=== PATIENT | female | born 1975 | race Caucasian/White ===

== ENCOUNTER → 2016-05-29 | Outpatient (CLI) | payer BC ==
--- NOTE | 2016-05-30 09:01 | MM ---
Reason for exam: screening (asymptomatic). Last mammogram was performed 5 years and 4 months ago. History: Breast lifts of both breasts, January 2011. Took hormonal contraceptives for 3 years. Took progesterone for 6 months. Physical Findings: A clinical breast exam by your physician is recommended on an annual basis and results should be correlated with mammographic findings. MG Screening Mammo w CAD Bilateral CC and MLO view(s) were taken. Prior study comparison: January 15, 2011, bilateral digital screening mammo w/CAD. The breast tissue is extremely dense which could obscure a lesion on mammography. Finding: There are typically benign round, regional calcifications in the anterior position of both breasts. Focal asymmetry in the right posterior outer aspect. New finding since January 15, 2011. ASSESSMENT: Incomplete: need additional imaging evaluation, BI-RAD 0 RECOMMENDATION: Special view mammogram and ultrasound of the right breast. [facility] will attempt to contact patient to return for supplemental views and ultrasound.
== END | disposition home or self-care (01) ==
LOC: RADMAMWWP 08:12
PROVIDERS: ATTEND Family Medicine
DX: Z12.31 Encounter for screening mammogram for malignant neoplasm of breast (principal)

== ENCOUNTER → 2016-06-04 | Outpatient (CLI) | payer BC ==
--- NOTE | 2016-06-04 09:17 | MM ---
Reason for exam: additional evaluation requested from abnormal screening. Last mammogram was performed less than 1 month ago. History: Breast lifts of both breasts, January 2011. Took hormonal contraceptives for 3 years. Took progesterone for 6 months. Physical Findings: Nurse did not find any significant physical abnormalities on exam. MG 3D Work Up W/Cad RT LM and spot compression CC view(s) were taken of the right breast. Prior study comparison: May 29, 2016, bilateral MG screening mammo w CAD. January 15, 2011, bilateral digital screening mammo w/CAD. The breast tissue is heterogeneously dense. This may lower the sensitivity of mammography. A 7mm area of nodular asymmetry is seen superiorly on the lateral view but becomes less defined on the CC view and may have been displaced laterally. These results were verbally communicated with the patient and result sheet given to the patient on 06/04/16. ASSESSMENT: Incomplete: need additional imaging evaluation, BI-RAD 0 RECOMMENDATION: Ultrasound of the right breast. (upper outer quadrant)
--- NOTE | 2016-06-04 09:22 | USB ---
Reason for exam: additional evaluation requested from abnormal screening. History: Breast lifts of both breasts, January 2011. Took hormonal contraceptives for 3 years. Took progesterone for 6 months. US Breast Workup Limited RT Right breast ultrasound demonstrates a 1.0 x 0.5 x 0.8cm oval, cystic cluster at 10 o'clock. This probably corresponds to the mammographic finding. A 6 month follow up is recommended. These results were verbally communicated with the patient and result sheet given to the patient on 06/04/16. ASSESSMENT: Probably benign, BI-RAD 3 RECOMMENDATION: Follow-up diagnostic mammogram and ultrasound of the right breast in 6 months. (targeted upper outer quadrant)
== END | disposition home or self-care (01) ==
LOC: RADMAMWWP 08:05
PROVIDERS: ATTEND Family Medicine
DX: R92.8 Other abnormal and inconclusive findings on diagnostic imaging of breast (principal)
CPT/HCPCS: 76642; G0206; G0279

== ENCOUNTER → 2016-09-24 | Outpatient (CLI) | payer BC ==
[2016-09-24 07:52] LABS: Basophils % (A) 1 %; CH 31.2; CHCM 33.3; Eosinophils # (A) 0.1 k/uL (0-0.7); Eosinophils % (A) 1 %; HCT 34.8 % (34.0-46.0); HDW 2.18; HGB 11.9 gm/dL (11.4-16.0); Luc % (Auto) 2; Lymphocytes # (A) 1.6 k/uL (1.0-4.8); Lymphocytes % (A) 25 %; MCH 32.2 pg (25.0-35.0); MCHC 34.3 g/dL (31.0-37.0); MCV 93.9 fL (80.0-100.0); Mean Platelet Volume 7.3; Monocytes # (A) 0.5 k/uL (0-1.0); Monocytes % (A) 7 %; Neutrophils # (A) 4.2 k/uL (1.3-7.7); Neutrophils % (A) 65 %; RBC 3.71 m/uL (3.80-5.40); RDW 12.4 % (11.5-15.5); WBC 6.5 k/uL (3.8-10.6); WBC (Perox) 6.69
[2016-09-24 08:13] LABS: ALT 33 U/L (9-52); AST 23 U/L (14-36); Alkaline Phosphatase 49 U/L (38-126); Anion Gap 6 mmol/L; Blood Urea Nitrogen 15 mg/dL (7-17); Calcium 9.2 mg/dL (8.4-10.2); Carbon Dioxide 28 mmol/L (22-30); Chloride 106 mmol/L (98-107); Cholesterol 163 mg/dL (<200); Glucose 83 mg/dL (74-99); HDL Cholesterol 73 mg/dL (40-60); Non-African American GFR(MDRD) >60 (>60 ml/min/1.73 sqM); Potassium 4.3 mmol/L (3.5-5.1); Sodium 140 mmol/L (137-145); Total Bilirubin 0.8 mg/dL (0.2-1.3); Total Protein 6.5 g/dL (6.3-8.2); Triglycerides 63 mg/dL (<150)
== END | disposition home or self-care (01) ==
LOC: LABWHC1 07:11
PROVIDERS: ATTEND Family Medicine
DX: Z00.00 Encounter for general adult medical examination without abnormal findings (principal)
CPT/HCPCS: 36415; 80053; 80061; 84439; 84443; 85025

== ENCOUNTER → 2016-12-06 | Outpatient (CLI) | payer BC ==
--- NOTE | 2016-12-06 09:35 | MM ---
Reason for exam: follow-up at short interval from prior study. Last mammogram was performed 6 months ago. History: Breast lifts of both breasts, January 2011. Took hormonal contraceptives for 3 years. Took progesterone for 6 months. Physical Findings: Nurse Summary: cluster in the right breast at 10 o'clock (nurse ts). MG 3D Diag Mammo W/Cad RT CC and MLO view(s) were taken of the right breast. Prior study comparison: June 04, 2016, right breast MG 3d work up w/cad RT. May 29, 2016, bilateral MG screening mammo w CAD. The breast tissue is extremely dense which could obscure a lesion on mammography. There is no discrete abnormality. Previoius nodule not as evident. No significant new findings when compared with previous films. These results were verbally communicated with the patient and result sheet given to the patient on 12/06/16. ASSESSMENT: Probably benign, BI-RAD 3 RECOMMENDATION: Follow-up diagnostic mammogram of both breasts in 6 months.
--- NOTE | 2016-12-06 09:52 | USB ---
Reason for exam: follow-up at short interval from prior study. History: Breast lifts of both breasts, January 2011. Took hormonal contraceptives for 3 years. Took progesterone for 6 months. US Breast RT Right breast ultrasound includes all four quadrants, the retroareolar region and axilla. Finding demonstrates a 3 x 3 x 4mm oval, cystic lesion at 3 o'clock, a 6 x 4 x 8mm oval, mixed lesion at 7 o'clock and a 8 x 3 x 7mm oval, mixed lesion at 10 o'clock, smaller in size since previous. These results were verbally communicated with the patient and result sheet given to the patient on 12/06/16. ASSESSMENT: Probably benign, BI-RAD 3 RECOMMENDATION: Ultrasound of the right breast in 6 months.
== END | disposition home or self-care (01) ==
LOC: RADMAMWWP 07:34
PROVIDERS: ATTEND Obstetrics & Gynecology
DX: R92.8 Other abnormal and inconclusive findings on diagnostic imaging of breast (principal)
CPT/HCPCS: 76641; G0206; G0279

== ENCOUNTER → 2017-07-02 | Outpatient (CLI) | payer BC ==
--- NOTE | 2017-07-02 08:52 | MM ---
Reason for exam: follow-up at short interval from prior study. Last mammogram was performed 7 months ago. History: Breast lifts of both breasts, January 2011. Took hormonal contraceptives for 3 years. Took progesterone for 6 months. Physical Findings: Nurse Summary: 2.5cm nodule in the right breast at 10-11 o'clock and a 2.5cm nodule in the left breast at 10-11 o'clock (nurse dw). MG 3D Diag Mammo W/Cad YOLI Bilateral CC and MLO view(s) were taken. Prior study comparison: December 06, 2016, right breast MG 3d diag mammo w/cad RT. June 04, 2016, right breast MG 3d work up w/cad RT. The breast tissue is extremely dense which could obscure a lesion on mammography. Finding: There are typically benign punctate, diffuse/scattered calcifications in both breasts. These results were verbally communicated with the patient and result sheet given to the patient on 07/02/17. ASSESSMENT: Benign, BI-RAD 2 RECOMMENDATION: Routine screening mammogram of both breasts in 1 year. Manage patient on a clinical basis.
== END | disposition home or self-care (01) ==
LOC: RADMAMWWP 07:57
PROVIDERS: ATTEND Obstetrics & Gynecology
DX: N60.19 Diffuse cystic mastopathy of unspecified breast (principal)
CPT/HCPCS: 77066; G0279

== ENCOUNTER → 2017-09-18 | Outpatient (CLI) | payer BC ==
--- NOTE | 2017-09-22 08:14 | USB ---
Reason for exam: clinical finding. History: Breast lifts of both breasts, January 2011. Took hormonal contraceptives for 3 years. Took progesterone for 6 months. Physical Findings: Nurse Summary: 10 o'clock 2.5cm palpable per Dr. Alexander (nurse ts). US Breast RT Right complete breast ultrasound includes all four quadrants, the retroareolar region and axilla. Finding demonstrates a 0.4 x 0.5 x 0.3cm mixed lesion at 3 o'clock versus 3 x 4 x 3mm, previously, not significantly changed and benign, a 0.4 x 0.3 x 0.4cm cystic, benign lesion at 5 o'clock, a 0.5 x 0.5 x 0.4cm cystic, benign lesion at 7 o'clock, a 0.6 x 0.7 x 0.2cm cystic, benign lesion at 10 o'clock and a 0.3 x 0.4 x 0.2cm cystic, benign lesion at 10 o'clock. No suspicious lesion at the 10 o'clock palpable. Dense tissue noted here. These results were verbally communicated with the patient and result sheet given to the patient on 09/18/17. ASSESSMENT: Benign, BI-RAD 2 RECOMMENDATION: Routine screening mammogram of both breasts in 9 months. Back on schedule.
== END | disposition home or self-care (01) ==
LOC: RADUSWWP 12:54
PROVIDERS: ATTEND Surgery
DX: N63.10 Unspecified lump in the right breast, unspecified quadrant (principal)

== ENCOUNTER → 2017-09-18 | Outpatient (CLI) | payer BC ==
[2017-09-18 11:54] VITALS: BP 122/73; PULSE 69; BMI 21.9
--- NOTE | 2017-09-18 12:48 | P.GSHP ---
History of Present Illness H&P Date: 09/18/17 Patient is a 41 year old white female seen in May for a breast exam after which a FNA was preformed. This was benign. She notes cyclic changes in her breast morton and nodular about once a month. She had uterine ablation and does not have periods. Last mammogram was done on 07/02/2017. This was felt to show extremely dense breast tissue with a typically benign punctate diffuse scattered calcifications bilaterally. There were no masses of concern which would warrant biopsy. This was felt to be a benign BIRADS 2 with routine screening mammogram of both breasts in 1 year. The patient does not feel anything of concern in her breast at this time. No nipple discharge or skin changes of concern. The patient does not note anything of concern in either breast at this time. No discrete masses or nodules of concern. No nipple discharge or changes of concern. Past surgical history: 1. Breast reconstruction after delivering her 2 children 2. Past medical history: Negative Family History: no cancer menarche: 12 : 2, first at 17, breast fed both uterine ablation: 30, no periods since than BCP: 15 years hormones: progesterone for about 2 months social history: smoke: stopped 15 years ago smoked for 10 years alcohol: none drugs: none - Constitutional Constitutional: Denies chills, Denies fever - EENT Eyes: denies blurred vision, denies decreased vision Ears: deny: decreased hearing, tinnitus Ears, nose, mouth and throat: Denies headache, Denies sore throat - Breasts Breasts: bilateral: as per HPI - Cardiovascular Cardiovascular: Denies chest pain, Denies shortness of breath - Respiratory Respiratory: Denies cough, Denies 7 - Gastrointestinal Gastrointestinal: Denies abdominal pain, Denies diarrhea, Denies nausea, Denies vomiting - Genitourinary (Female) Genitourinary: Denies dysuria, Denies hematuria - Musculoskeletal Musculoskeletal: Denies myalgias - Integumentary Integumentary: Denies pruritus, Denies rash - Neurological Neurological: Denies numbness, Denies weakness - Psychiatric Psychiatric: Denies anxiety, Denies depression - Endocrine Endocrine: Denies fatigue, Denies weight change - Hematologic/Lymphatic Comment: none - Allergic/Immunologic Comment: none Past Medical History History of Any Multi-Drug Resistant Organisms: None Reported Past Surgical History: Breast Surgery, Section Additional Past Surgical History / Comment(s): breast reconstruction 2010, c/s 1997 Smoking Status: Never smoker Medications and Allergies Home Medications Medication Instructions Recorded Confirmed Type ISOtretinoin [Amnesteem] 20 caplet PO DAILY 09/18/17 09/18/17 History Surgical - Exam Vital Signs Pulse BP Pulse Ox 69 122/73 98 09/18/17 11:48 09/18/17 11:48 09/18/17 11:48 - General well developed, well nourished, no distress - Eyes normal ocular movement, no icteric - ENT no hearing loss, no congestion - Neck no masses, trachea midline - Respiratory normal respiratory effort, clear to auscultation - Cardiovascular Rhythm: regular Heart Sounds: normal: S1, S2 - Abdomen Abdomen: soft, non tender, no guarding, no rigid, no rebound - Integumentary no rash, no abnormal pigmentation - Neurologic no disoriented, no combative - Musculoskeletal normal gait - Psychiatric oriented to time, oriented to person, oriented to place, speech is normal, memory intact Breast Exam: right breast: Multiple positional exam reveals well-healed scars from prior reduction mammoplasty increased nodularity in the upper outer quadrant region from which FNA has already been performed and been benign May 2017 Right axilla: No adenopathy of concern Left breast: skin changes related to prior reduction mammoplasty, increased nodularity upper outer quadrant slightly less than on the right side felt to be fibrocystic changes Left axilla: No adenopathy of concern Assessment and Plan Assessment: Impression/plan: 1. Bilateral fibrocystic breast changes 2. Bilateral reduction mammoplasty, with post op changes 3. Bilateral mammogram performed June 2017 felt to be benign 4. Patient recommended in November to undergo a right breast ultrasound which will be ordered at this time Plan: 1. Right breast ultrasound 2. Close surveillance of breast nodularity 3. Repeat physician exam in 6 months with repeat bilateral mammogram in 1 year Cc: Dr. Saravia
== END ==
LOC: WWCWWP 11:39
PROVIDERS: ATTEND Surgery
DX: N60.19 Diffuse cystic mastopathy of unspecified breast (principal); Z53.9 Procedure and treatment not carried out, unspecified reason

== ENCOUNTER 2019-07-07 07:41 | Emergency (ER) | payer BC ==
[2019-07-07 07:50] VITALS: BP 123/85; PULSE 75; RESP 18; TEMP 98.2
--- NOTE | 2019-07-07 07:58 | ED ---
Lower Extremity Injury HPI - General Chief Complaint: Extremity Injury, Lower Stated Complaint: RT foot injury Time Seen by Provider: 07/07/19 07:48 Source: patient, RN notes reviewed Mode of arrival: ambulatory Limitations: no limitations - History of Present Illness Initial Comments: 43-year-old female presents emergency Department with chief complaint of right foot injury. Patient states that she was moving a piece of heavy furniture on Friday states that she did not move her foot on the way in time states that it crushed her right foot. Patient states that it is swollen, bruised and she states the pain is not improving. She has had a prior right foot fracture. Denies any paresthesias. Denies any other areas of injury or any other areas of pain. - Related Data Home Medications Medication Instructions Recorded Confirmed ISOtretinoin [Amnesteem] 20 caplet PO DAILY 09/18/17 09/18/17 Allergies Allergy/AdvReac Type Severity Reaction Status Date / Time codeine Allergy Rash/Hives Verified 07/07/19 07:50 meperidine [From Demerol] Allergy Rash/Hives Verified 07/07/19 07:50 Review of Systems ROS Statement: Those systems with pertinent positive or pertinent negative responses have been documented in the HPI. ROS Other: All systems not noted in ROS Statement are negative. Past Medical History Past Medical History: No Reported History History of Any Multi-Drug Resistant Organisms: None Reported Past Surgical History: Breast Surgery, Section Additional Past Surgical History / Comment(s): breast reconstruction 2010, c/s 1997 Smoking Status: Never smoker Past Alcohol Use History: Occasional Past Drug Use History: None Reported General Exam Limitations: no limitations General appearance: alert, in no apparent distress Head exam: Present: atraumatic, normocephalic, normal inspection Respiratory exam: Present: normal lung sounds bilaterally. Absent: respiratory distress, wheezes, rales, rhonchi, stridor Cardiovascular Exam: Present: regular rate, normal rhythm, normal heart sounds. Absent: systolic murmur, diastolic murmur, rubs, gallop, clicks Extremities exam: Present: other Neurological exam: Present: reflexes normal. Absent: motor sensory deficit Skin exam: Present: warm (Right foot there is ecchymosis noted, tenderness the lateral portion of the right foot neurovascular intact no pain proximal to the right foot), dry, intact, normal color. Absent: rash Course Vital Signs 07/07/19 07:47 Temperature 98.2 F Pulse Rate 75 Respiratory 18 Rate Blood Pressure 123/85 O2 Sat by Pulse 98 Oximetry Medical Decision Making - Medical Decision Making 43-year-old female presented for right foot injury x-rays were reviewed and read by radiologist there are no obvious fractures noted. Patient's right foot contusion conservative treatment will be continued including rest, ice elevation and Motrin. Disposition Clinical Impression: Contusion of right foot Disposition: HOME SELF-CARE Condition: Stable Instructions (If sedation given, give patient instructions): Foot Contusion (ED) Additional Instructions: Please return to the Emergency Department if symptoms worsen or any other concerns. Is patient prescribed a controlled substance at d/c from ED?: No Referrals: Jhony Ponce MD [Primary Care Provider] - 1-2 days Time of Disposition: 08:09
--- NOTE | 2019-07-07 08:23 | XR ---
EXAMINATION TYPE: XR foot complete RT DATE OF EXAM: 07/07/2019 CLINICAL HISTORY: Pain and bruising across the third through fifth metatarsals. TECHNIQUE: Frontal, lateral, and oblique images of the right foot are obtained. COMPARISON: None FINDINGS: There is no acute fracture/dislocation evident in the right foot. Sadler's toe is inciden tally noted. The joint spaces in the right foot appear within normal limits. The overlying soft tiss ue appears unremarkable. Very small Achilles' heel spur is seen. IMPRESSION: There is no acute fracture or dislocation in the right foot.
== END 2019-07-07 08:29 | disposition home or self-care (01) ==
LOC: EC 07:41
DX: S90.31XA Contusion of right foot, initial encounter (principal); Z88.5 Allergy status to narcotic agent; W23.0XXA Caught, crushed, jammed, or pinched between moving objects, initial encounter; Y93.89 Activity, other specified
CPT/HCPCS: 99283

== ENCOUNTER 2019-10-30 03:40 | Emergency (ER) | payer BC ==
[2019-10-30] MEDS ORDERED: HYDROmorphone 0.5 MG/0.5 ML SYRINGE IM STA (03:59)
--- NOTE | 2019-10-30 04:34 | ED ---
Lower Extremity Injury HPI - General Chief Complaint: Extremity Injury, Lower Stated Complaint: Right leg pain Time Seen by Provider: 10/30/19 03:50 Source: patient, family Mode of arrival: wheelchair Limitations: no limitations - History of Present Illness Initial Comments: This patient is a 43-year-old woman who presents to be evaluate for right hamst ring pain after she had been leg wrestling proximally 20 minutes ago. The patient is able to support weight on the right leg. She indicates the posterior aspect right leg. No weakness or numbness. No symptoms distal to the injury. There is no pain into the joints of the leg MD Complaint: leg injury Onset/Timin -: minutes(s) Injury: Leg: Right Type of Injury: other Place: home Severity: severe Improves With: nothing Worsens With: movement Context: other Associated Symptoms: able to partially bear weight - Related Data Home Medications Medication Instructions Recorded Confirmed ISOtretinoin [Amnesteem] 20 caplet PO DAILY 09/18/17 09/18/17 Previous Rx's Medication Instructions Recorded Hydrocodone/Acetaminophen [Marina 1 each PO Q6HR PRN #20 tab 10/30/19 5-325] Allergies Allergy/AdvReac Type Severity Reaction Status Date / Time codeine Allergy Rash/Hives Verified 10/30/19 03:52 meperidine [From Demerol] Allergy Rash/Hives Verified 10/30/19 03:52 Review of Systems ROS Statement: Those systems with pertinent positive or pertinent negative responses have been documented in the HPI. ROS Other: All systems not noted in ROS Statement are negative. Constitutional: Denies: fever Cardiovascular: Denies: chest pain Gastrointestinal: Denies: abdominal pain Musculoskeletal: Reports: as per HPI, myalgia. Denies: back pain Skin: Denies: lesions Neurological: Denies: weakness, numbness, paresthesias Past Medical History Past Medical History: No Reported History History of Any Multi-Drug Resistant Organisms: None Reported Past Surgical History: Breast Surgery, Section Additional Past Surgical History / Comment(s): breast reconstruction 2010, c/s 1997 Past Psychological History: No Psychological Hx Reported Smoking Status: Never smoker Past Alcohol Use History: Occasional Past Drug Use History: None Reported General Exam Limitations: no limitations Head exam: Present: atraumatic, normocephalic Respiratory exam: Present: normal lung sounds bilaterally. Absent: respiratory distress, wheezes, rales, rhonchi, stridor Cardiovascular Exam: Present: regular rate, normal rhythm, normal heart sounds. Absent: systolic murmur, diastolic murmur, rubs, gallop Right Upper Leg exam: Present: normal inspection, full ROM, tenderness. Absent: swelling Knee exam: Present: normal inspection, full ROM. Absent: tenderness Lower Leg exam: Present: normal inspection. Absent: tenderness Ankle exam: Present: normal inspection, full ROM. Absent: tenderness Foot/Toe exam: Present: normal inspection, full ROM. Absent: tenderness Neurovascular tendon exam: Present: no vascular compromise. Absent: pulse deficit, abnormal cap refill, motor deficit, sensory deficit, tendon deficit, ex tremity cold to touch Neurological exam: Present: alert. Absent: motor sensory deficit Skin exam: Present: warm, dry, intact, normal color. Absent: rash Course Vital Signs 10/30/19 10/30/19 03:49 04:59 Temperature 98.2 F 98.7 F Pulse Rate 83 81 Respiratory 16 18 Rate Blood Pressure 128/86 139/90 O2 Sat by Pulse 100 97 Oximetry Medical Decision Making - Medical Decision Making Patient's 43-year-old woman presenting with what appears to be a hamstring injury. She has had improvement with analgesia here. We discussed imaging and at this point patient declined x-ray and will follow-up to have ultrasound, if ultrasound nondiagnostic she may require MRI and/or orthopedic consultation. We discussed appropriate further care and follow-up as well as return parameters. Disposition Clinical Impression: Hamstring injury Disposition: HOME SELF-CARE Condition: Good Instructions (If sedation given, give patient instructions): Hamstring Injury (ED) Prescriptions: Hydrocodone/Acetaminophen [Marina 5-325] 1 each PO Q6HR PRN #20 tab PRN Reason: Pain Is patient prescribed a controlled substance at d/c from ED?: Yes When asked, does pt state using other controlled substances?: No If prescribed controlled substance>3 days was MAPS reviewed?: Prescribed <3 Days If opioid is for acute pain is fill amount 7 days or less?: Yes If Rx opioid, was Start Talking consent form obtained?: Yes Referrals: Jhony Ponce MD [Primary Care Provider] - 1-2 days
[2019-10-30 05:01] VITALS: BP 139/90; PULSE 81; RESP 18; TEMP 98.7
== END 2019-10-30 05:01 | disposition home or self-care (01) ==
LOC: EC 03:40
DX: S76.311A Strain of muscle, fascia and tendon of the posterior muscle group at thigh level, right thigh, initial encounter (principal); Z79.899 Other long term (current) drug therapy; Z88.5 Allergy status to narcotic agent; X50.1XXA Overexertion from prolonged static or awkward postures, initial encounter; Y93.72 Activity, wrestling
CPT/HCPCS: 99283; 96372; J1170

== ENCOUNTER → 2020-07-24 | Outpatient (CLI) | payer BC ==
[2020-07-24 15:05] LABS: Basophils # (A) 0.04 X 10*3/uL (0.00-0.10); Basophils % (A) 0.8 %; Eosinophils # (A) 0.08 X 10*3/uL (0.04-0.35); Eosinophils % (A) 1.6 %; HCT 41.9 % (37.2-46.3); HGB 13.2 g/dL (12.0-15.0); Lymphocytes # (A) 1.44 X 10*3/uL (0.90-5.00); MCH 30.3 pg (27.0-32.0); MCHC 31.5 g/dL (32.0-37.0); MCV 96.1 fL (80.0-97.0); Mean Platelet Volume 12.2 fL (9.5-12.2); Monocytes # (A) 0.54 X 10*3/uL (0.20-1.00); Monocytes % (A) 10.9 %; Neutrophils # (A) 2.86 X 10*3/uL (1.80-7.70); Neutrophils % (A) 57.5 %; Platelet Count 226 X 10*3/uL (140-440); RBC 4.36 X 10*6/uL (4.10-5.20); WBC 4.97 X 10*3/uL (4.50-10.00)
[2020-07-24 16:43] LABS: Estradiol 86.7 pg/mL; Follicle Stimulating Hormone 49.1 mIU/mL
[2020-07-24 16:54] LABS: Progesterone 0.9 ng/mL; Thyroid Peroxidase Antibodies <28.0 U/mL (0.0-60.0)
== END | disposition home or self-care (01) ==
LOC: LABWHC1 08:33
PROVIDERS: ATTEND Obstetrics & Gynecology
DX: N95.1 Menopausal and female climacteric states (principal)
CPT/HCPCS: 36415; 82670; 83001; 84144; 84443; 85025; 86376; 86800

== ENCOUNTER → 2020-08-16 | Outpatient (CLI) | payer BC ==
--- NOTE | 2020-08-17 12:22 | MM ---
Reason for exam: screening (asymptomatic). Last mammogram was performed 3 years and 1 month ago. History: Breast lifts of both breasts, January 2011. Took hormonal contraceptives for 3 years. Took progesterone for 6 months. Physical Findings: A clinical breast exam by your physician is recommended on an annual basis and results should be correlated with mammographic findings. MG 3D Screening Mammo W/Cad Bilateral CC and MLO view(s) were taken. Prior study comparison: July 02, 2017, bilateral MG 3d diag mammo w/cad YOLI. December 06, 2016, right breast MG 3d diag mammo w/cad RT. May 29, 2016, bilateral MG screening mammo w CAD. The breast tissue is extremely dense which could obscure a lesion on mammography. Focal asymmetry, enlarging posterior right CC, 9 o'clock position. This finding is changed when compared with previous exams. ASSESSMENT: Incomplete: need additional imaging evaluation, BI-RAD 0 RECOMMENDATION: Special view mammogram of the right breast. If lesion persists on supplemental views, image directed ultrasound is recommended. [facility] will attempt to contact patient to return for supplemental views and ultrasound if indicated.
== END | disposition home or self-care (01) ==
LOC: RADMAMWWP 06:58
PROVIDERS: ATTEND Obstetrics & Gynecology
DX: Z12.31 Encounter for screening mammogram for malignant neoplasm of breast (principal)
CPT/HCPCS: 77063; 77067

== ENCOUNTER → 2020-08-18 | Outpatient (CLI) | payer BC ==
--- NOTE | 2020-08-18 12:09 | MM ---
Reason for exam: additional evaluation requested from abnormal screening. Last mammogram was performed less than 1 month ago. History: Breast lifts of both breasts, January 2011. Took hormonal contraceptives for 3 years. Took progesterone for 6 months. Physical Findings: Nurse Summary: 1cm nodule in the right breast at 9 o'clock (nurse ms). MG 3D Work Up W/Cad RT Spot compression CC, spot compression XCCL, spot compression CCRL, and ML view(s) were taken of the right breast. Prior study comparison: August 16, 2020, bilateral MG 3d screening mammo w/cad. July 02, 2017, bilateral MG 3d diag mammo w/cad YOLI. The breast tissue is extremely dense which could obscure a lesion on mammography. Right palpable 12mm nodule 9 o'clock subareolar at palpable lump. Right 2.5cm nodule 9-11 o'clock, 6cm from nipple. These results were verbally communicated with the patient and result sheet given to the patient on 08/18/20. ASSESSMENT: Incomplete: need additional imaging evaluation, BI-RAD 0 RECOMMENDATION: Ultrasound of the right breast.
--- NOTE | 2020-08-18 12:11 | USB ---
Reason for exam: additional evaluation requested from abnormal screening. History: Breast lifts of both breasts, January 2011. Took hormonal contraceptives for 3 years. Took progesterone for 6 months. US Breast Workup Limited RT Technologist: Bryanna Henderson Right limited breast ultrasound including focal area of concern, retroareolar and axilla demonstrates a 1.0 x 0.7 x 0.5cm cystic lesion at 10 o'clock, cluster/group, probably benign. These results were verbally communicated with the patient and result sheet given to the patient on 08/18/20. ASSESSMENT: Probably benign, BI-RAD 3 RECOMMENDATION: Follow-up diagnostic mammogram and ultrasound of the right breast in 6 months.
== END | disposition home or self-care (01) ==
LOC: RADMAMWWP 09:03
PROVIDERS: ATTEND Obstetrics & Gynecology
DX: N63.10 Unspecified lump in the right breast, unspecified quadrant (principal); N60.01 Solitary cyst of right breast
CPT/HCPCS: 77061; 77065

== ENCOUNTER → 2021-08-08 | Outpatient (CLI) | payer BC ==
--- NOTE | 2021-08-10 11:20 | USB ---
Reason for Exam: Additional evaluation requested from prior study. Last screening mammogram was performed 11 month(s) ago. Indicated Problems: Lump or thickening of the right side. Patient History: Menarche at age 12. First Full-Term at age 17. Progesterone for 6 months. Patient used Hormonal Contraceptives for 3 years. Risk Values: Loan 5 year model risk: 0.6%. NCI Lifetime model risk: 7.0%. Film Views: Bilateral CC views were taken. Bilateral MLO views were taken. Prior Study Comparison: 07/02/2017 Bilateral Diagnostic Mammogram, [facility]. 08/16/2020 Bilateral Screening Mammogram, [facility]. 08/18/2020 Right Diagnostic Mammogram, [facility]. Tissue Density: The breast tissue is extremely dense which could obscure a lesion on mammography. Findings: Analyzed By CAD. Mammogram No discrete solid or cystic areas are evident. Scattered benign-appearing punctate calcifications are present. No suspicious cluster of microcalcifications is evident.. Technique: Method: Whole Breast Handheld. Patient Position: Supine. Findings: The whole breast of the right breast, the axilla of the right breast and the retroareolar of the right breast were scanned. Small benign-appearing cysts are present. A larger benign-appearing cyst is at the 9:00 position and measures 0.6 x 0.5 x 0.6 cm. This is good through transmission and smooth melara and posterior wall enhancement. This is new from comparison. Overall Assessment: Benign, BI-RAD 2 Assessment: MG 3D diag mammo w/cad YOLI - Bilateral: Benign, BI-RAD 2. US breast RT - Right: Benign, BI-RAD 2. Management: Screening Mammogram of both breasts in 1 year. Electronically signed and approved by: Beny Sexton D.O. Radiologis
== END | disposition home or self-care (01) ==
LOC: RADMAMWWP 08:52
PROVIDERS: ATTEND Obstetrics & Gynecology
DX: R92.1 Mammographic calcification found on diagnostic imaging of breast (principal); N60.01 Solitary cyst of right breast
CPT/HCPCS: 77062; 77066

== ENCOUNTER → 2022-08-27 | Outpatient (CLI) | payer BC ==
--- NOTE | 2022-08-28 08:47 | MM ---
Reason for Exam: Screening (asymptomatic). Last mammogram was performed 1 year(s) and 1 month(s) ago. Patient History: Menarche at age 12. First Full-Term at age 17. Patient has history of breast feeding. Progesterone for 6 months. Patient used Hormonal Contraceptives for 3 years. Last menstrual period: Risk Values: Loan 5 year model risk: 0.6%. NCI Lifetime model risk: 6.9%. Prior Study Comparison: 08/16/2020 Bilateral Screening Mammogram, [facility]. 08/18/2020 Right Diagnostic Mammogram, [facility]. 08/08/2021 Bilateral MG 3D diag mammo w/cad YOLI, [facility]. Tissue Density: The breast tissue is extremely dense which could obscure a lesion on mammography. Findings: Analyzed By CAD. There is no suspicious group of microcalcifications or new suspicious mass in either breast. Overall Assessment: Benign, BI-RAD 2 Management: Screening Mammogram of both breasts in 1 year. . Patient should continue monthly self-breast exams. A clinical breast exam by your physician is recommended on an annual basis. This exam should not preclude additional follow-up of suspicious palpable abnormalities. Note on Loan scores and lifetime risk: 1. A Loan score greater than 3% is considered moderate risk. If this is the case, consider specialist referral to assess eligibility for a risk reducing agent. 2. If overall lifetime risk for the development of breast cancer is 20% or higher, the patient may qualify for future screening with alternating mammogram and breast MRI. Electronically signed and approved by: Nadeem Knapp M.D. Radiologis
== END | disposition home or self-care (01) ==
LOC: RADMAMWWP 07:38
PROVIDERS: ATTEND Obstetrics & Gynecology
DX: Z12.31 Encounter for screening mammogram for malignant neoplasm of breast (principal)
CPT/HCPCS: 77063; 77067

== ENCOUNTER → 2023-09-30 | Outpatient (CLI) | payer BC ==
--- NOTE | 2023-10-06 09:12 | MM ---
Reason for Exam: Screening (asymptomatic). Last mammogram was performed 1 year(s) and 1 month(s) ago. Patient History: Menarche at age 12. First Full-Term at age 17. Patient has history of breast feeding. Progesterone for 6 months. Patient used Hormonal Contraceptives for 3 years. Risk Values: Loan 5 year model risk: 0.6%. NCI Lifetime model risk: 6.8%. Prior Study Comparison: 08/18/2020 Right Diagnostic Mammogram, [facility]. 08/08/2021 Bilateral MG 3D diag mammo w/cad YOLI, [facility]. 08/27/2022 Bilateral MG 3D screening mammo w/cad, [facility]. Tissue Density: The breasts are extremely dense, which lowers the sensitivity of mammography. Findings: Analyzed By CAD. There is no suspicious group of microcalcifications or new suspicious mass in either breast. Benign-appearing calcifications. Overall Assessment: Benign, BI-RAD 2 Management: Screening Mammogram of both breasts in 1 year. . Patient should continue monthly self-breast exams. A clinical breast exam by your physician is recommended on an annual basis. This exam should not preclude additional follow-up of suspicious palpable abnormalities. Note on Loan scores and lifetime risk: 1. A Loan score greater than 3% is considered moderate risk. If this is the case, consider specialist referral to assess eligibility for a risk reducing agent. 2. If overall lifetime risk for the development of breast cancer is 20% or higher, the patient may qualify for future screening with alternating mammogram and breast MRI. Electronically signed and approved by: Trung Glover M.D. Radiologis
== END | disposition home or self-care (01) ==
LOC: RADMAMWWP 06:59
PROVIDERS: ATTEND Obstetrics & Gynecology
DX: Z12.31 Encounter for screening mammogram for malignant neoplasm of breast (principal); R92.343 Mammographic extreme density, bilateral breasts
CPT/HCPCS: 77063; 77067